=== PATIENT | female | born 1980 | race Two or more races ===

== ENCOUNTER 2025-04-16 08:56 | Inpatient (IN) | payer OTHER ==
[~2025-04-16] VITALS: Ht 162.6 cm; Wt 95.2 kg
[~2025-04-16 08:56] MED LIST: AUG875T PO; IBUP1TAB5 PO
--- NOTE | 2025-04-16 09:54 | ED.PDOC ---
Musculoskeletal HPI Comments 44 y.o female recently dx with rheumatoid arthritis, DJD, and kidney stones, presents to the ED via EMS for a chief complaint of left knee x 2 weeks and left hip x 2 days. Patient reports pain is new onset, denies any recent falls or injuries to pain site. Patient states generalized pain due to her arthritis is intermittent however left knee and hip have been persistent and gradually worsening with inability to bear weight. Patient has limited ROM with worsening pain with movement and states that her left/knee locks spontaneously. She is awaiting to obtain appointment to see a furnace erector to establish care. She denies any numbness, fever, chills, or IV substance use. She uses Ibuprofen QID and up to 5x with marijuana with pain relief to chronic pain however knee and hip has no alleviating factors. Chief Complaint: Lower Extremity Time Seen by MD: 11:36 Primary Care Provider: NONE Reviewed Notes: Nurses Notes, Chief Passenger Ship Steward/Stewardess Notes, Medications, Allergies Allergies: Coded Allergies: Iodine (Verified Allergy, Severe, 08/03/23) Home Meds Active Scripts Ibuprofen Micronized (Ibuprofen) 600 Mg Tab, 600 MG PO TIDWM for 10 Days, #30 TAB 0 Refills Prov:MEDINA BUI NP 08/03/23 Amoxicillin & Pot Clavulanate (AUGMENTIN TABLET) 875 Mg Tb, 875 MG PO BID for 7 Days, #14 TAB 0 Refills Prov:MEDINA BUI MEDIA SALES REPRESENTATIVE 08/03/23 Information Source: Patient Location: Left Extremity Location: Hip Severity: Moderate Able to Move Extremity: No Bear Weight: Limited Pain: Moderate Symptoms: Pain Past Medical History PAST MEDICAL HISTORY: Denies Surgical History: Denies all surgeries OVERLAY OPERATOR History: No Pertinent OVERLAY OPERATOR History Family History Family History: Reviewed,noncontributory to illness Social History Smoker: Non-Smoker Alcohol: Denies ETOH Use Drugs: Denies Drug Use Constitutional: denies: chills, diaphoresis, fatigue, fever, malaise, sweats, w eakness, others EENTM: denies: blurred vision, double vision, ear bleeding, ear discharge, ear drainage, ear pain, ear ringing, eye pain, eye redness, hearing loss, mouth pain, mouth swelling, nasal discharge, nose bleeding, nose congestion, nose pain, photophobia, tearing, throat pain, throat swelling, voice changes, others Respiratory: denies: cough, hemoptysis, orthopnea, SOB at rest, shortness of breath, SOB with excertion, stridor, wheezing, others Cardiovascular: denies: chest pain, dizzy spells, diaphoresis, Dyspnea on exertion, edema, irregular heart beat, left arm pain, lightheadedness, palpitations, PND, syncope, others Gastrointestinal: denies: abdomen distended, abdominal pain, blood streaked bowels, constipated, diarrhea, dysphagia, difficulty swallowing, hematemesis, melena, nausea, poor appetite, poor fluid intake, rectal bleeding, rectal pain, vomiting, others Genitourinary: denies: abnormal vagina bleeding, burning, dyspareunia, dysuria, flank pain, frequency, hematuria, incontinence, pain, , vagina di scharge, urgency, others Neurological: denies: dizziness, fainting, headache, left sided numbness, left sided weakness, numbness, paresthesia, pre-existing deficit, right sided numbness, right sided weakness, seizure, speech problems, tingling, tremors, weakness, others Musculoskeletal: reports: others (left hip pain ); denies: back pain, gout, joint pain, joint swelling, muscle pain, muscle stiffness, neck pain Integumetry: denies: bruises, change in color, change in hair/nails, dryness, laceration, lesions, lumps, rash, wounds, others Allergic/Immunocompromised: denies: Difficulty Healing, Frequent Infections, Hives, Itching, others Hematologic/Lymphatic: denies: anemia, blood clots, easy bleeding, easy bruising, swollen glands, others Endocrine: denies: excessive hunger, excessive sweating, excessive thirst, excessive urination, flushing, intolerance to cold, intolerance to heat, unexplained weight gain, unexplained weight loss, others Psychiatric: denies: anxiety, bipolar disorder, depression, hopeless, panic disorder, schizophrenia, sleepless, suicidal, others All Other Systems: Reviewed and Negative Physical Exam General Appearance: Moderate Distress HEENT: Normal ENT Inspection, Pharynx Normal, TMs Normal Neck: Full Range of Motion, Non-Tender, Normal, Normal Inspection Respiratory: Chest Non-Tender, Lungs Clear, No Accessory Muscle Use, No Respiratory Distress, Normal Breath Sounds Cardiovascular: No Edema, No JVD, No Murmur, No Gallop, Normal Peripheral Pulses, Regular Rate/Rhythm Breast Exam: Deferred Gastrointestinal: No Organomegaly, Non Tender, No Pulsatile Mass, Normal Bowel Sounds, Soft Genitalia: Deferred Pelvic: Deferred Rectal: Deferred Extremities: Other (Swelling to the left knee. No pain with passive movement. However increased pain with ambulation. Left hip with no obvious swelling or deformity. Patient is able to bear weight hip without difficulty.) Musculoskeletal : Apperance: Normal Neurologic: Alert, No Motor Deficits, Normal Affect, Normal Mood, No Sensory Deficits Cerebellar Function: Normal Reflexes: Normal Skin: Dry, Normal Color, Warm Lymphatic: No Adenopathy Was a procedure done? Was a procedure done?: No Differential Diagnosis EXT Differential Diagnosis: Fracture, Sprain, Dislocation, Strain, Arthritis X-Ray, Labs, Meds, VS Vital Signs Date Time Temp Pulse Resp B/P (MAP) Pulse Ox O2 Delivery O2 Flow Rate FiO2 04/16/25 15:40 81 14 127/80 (96) 95 04/16/25 14:44 81 14 127/80 (96) 95 04/16/25 14:42 81 14 127/80 04/16/25 13:53 76 19 137/82 04/16/25 13:37 97.9 76 19 137/82 (100) 97 97.9 04/16/25 13:37 76 19 97 Room Air* 0 21 04/16/25 13:36 76 19 137/82 04/16/25 12:35 98.6 76 18 136/92 (107) 100 98.6 04/16/25 10:46 81 20 123/91 04/16/25 10:40 80 18 100 Room Air 04/16/25 10:40 98.4 80 18 121/94 (103) 100 98.4 Lab Test 04/16/25 12:43 Range/Units White Blood Count 9.9 4.4-10.8 10^3/uL Red Blood Count 4.83 4.0-5.20 10^6/uL Hemoglobin 11.9 L 12.2-16.2 g/dL Hematocrit 37.0 36.0-46.0 % Mean Corpuscular Volume 76.6 L 80.0-100.0 fL Mean Corpuscular Hemoglobin 24.7 L 28.0-32.0 pg Mean Corpuscular Hemoglobin Concent 32.2 32.0-36.0 g/dL Red Cell Distribution Width 18.6 H 11.8-14.3 % Platelet Count 370 140-450 10^3/uL Mean Platelet Volume 8.3 6.9-10.8 fL Neutrophils (%) (Auto) 71.5 37.0-80.0 % Lymphocytes (%) (Auto) 18.2 10.0-50.0 % Monocytes (%) (Auto) 5.9 0.0-12.0 % Eosinophils (%) (Auto) 3.4 0.0-7.0 % Basophils (%) (Auto) 1.0 0.0-2.0 % Neutrophils # (Auto) 7.1 1.6-8.6 10 ^3/uL Lymphocytes # (Auto) 1.8 0.4-5.4 10 ^3/uL Monocytes # (Auto) 0.6 0-1.3 10 ^3/uL Eosinophils # (Auto) 0.3 0-0.8 10 ^3/uL Basophils # (Auto) 0.1 0-0.2 10 ^3/uL Nucleated Red Blood Cells 0.1 % Erythrocyte Sedimentation Rate 9 0-20 mm/hr Sodium Level 142 136-145 mmol/L Potassium Level 4.5 3.5-5.1 mmol/L Chloride Level 109 H 98-107 mmol/L Carbon Dioxide Level 24 20-31 mmol/L Anion Gap 9 5-15 Blood Urea Nitrogen 22 9-23 mg/dL Creatinine 0.92 0.550-1.02 mg/dL Glomerular Filtration Rate Calc 78 >90 mL/min BUN/Creatinine Ratio 23.9 H 10.0-20.0 Serum Glucose 92 74-106 mg/dL Calcium Level 9.5 8.7-10.4 mg/dL C-Reactive Protein High Sensitivity 0.37 <1.0 mg/dL Current Medications Medications (Trade) Dose Ordered Sig/Charles Route Start Time Stop Time Status Last Admin Hydromorphone HCl (Dilaudid Injection) 0.5 mg ONCE ONCE IV 04/16/25 10:00 04/16/25 10:01 OK 04/16/25 10:46 Ondansetron HCl (Zofran) 4 mg ONCE ONCE IV 04/16/25 10:00 04/16/25 10:01 OK 04/16/25 10:47 Hydromorphone HCl (Dilaudid Injection) 0.5 mg ONCE ONCE IV 04/16/25 12:15 04/16/25 12:16 DC 04/16/25 13:53 Dexamethasone Sodium Phosphate (Decadron Injection) 10 mg ONCE ONCE IV 04/16/25 14:30 04/16/25 14:31 DC 04/16/25 14:42 44-year-old female presents here with left hip pain that began this morning and left knee pain that she has had for 2 weeks. She states the left knee has been swollen and causing her discomfort for 2 weeks. She does have x-rays ordered by her PCP and she is waiting to see the furnace erector. She was recently diagnosed with rheumatoid arthritis. She states however she woke up this morning and the pain was excruciating. On my examination she is in significant discomfort. I have given her multiple injections of pain medications. She is able to bear weight on her hip, it is her knee that causes her most problems. However she does not have pain with passive movement of the left knee. I did considered possible septic joint. However given that she has 2 large joints that are causing her pain both the hip and left knee this is unlikely. This is likely a flare-up of her rheumatoid arthritis. Blood work has been done with no WBC count, ESR is within normal limits, CRP is slightly elevated however this can be also being seen in rheumatoid arthritis. At this time I have given her dexamethasone in the ER. X-rays has been done of the hip femur including the knee which are unremarkable. At this time hospitalist team has been consulted for pain control patient has been significant pain. X-Ray, Labs, Meds, VS Comment [place] [address] Ph: [phone] DIAGNOSTIC IMAGING Diagnostic Imaging Report : [id number] Signed PATIENT: CELESTINE LAZO LYNNACCT: [id number] UNIT: [id number] : 1980 LOC: ER ROOM / BED: / AGE / SEX: 44 / F ADM STATUS: REG ER SERVICE [id number] ORDERING PHYSICIAN: KEVIN CHICAS MD PROCEDURE(s): LFEM - L FEMUR XRAY REASON: Rule out fracture ORDER NUMBER(s): [id number], ACCESSION NUMBER(s): [id number] EXAM: XY L FEMUR XRAY HISTORY: Rule out fracture COMPARISON: None TECHNIQUE: AP and lateral views of the left femur were performed. FINDINGS: No evidence of fracture or other osseous abnormality about the left femur. The left hip and knee are grossly normal. IMPRESSION: 1. No acute fracture of the left femur. ATED BY: SUMEET MANRIQUEZ MD DICTATED DATE/TIME: 04/16/251031 SIGNED BY: SUMEET MANRIQUEZ MD SIGNED DATE/TIME: 04/16/251031 CC: [place] [address] Ph: [phone] DIAGNOSTIC IMAGING Diagnostic Imaging Report : [id number] Signed PATIENT: CELESTINE LAZO LYNNACCT: [id number] UNIT: [id number] : 1980 LOC: ER ROOM / BED: / AGE / SEX: 44 / F ADM STATUS: REG ER SERVICE [id number] ORDERING PHYSICIAN: KEVIN CHICAS MD PROCEDURE(s): LFEM - L FEMUR XRAY REASON: Rule out fracture ORDER NUMBER(s): [id number], ACCESSION NUMBER(s): [id number] EXAM: XY L FEMUR XRAY HISTORY: Rule out fracture COMPARISON: None TECHNIQUE: AP and lateral views of the left femur were performed. FINDINGS: No evidence of fracture or other osseous abnormality about the left femur. The left hip and knee are grossly normal. IMPRESSION: 1. No acute fracture of the left femur. ATED BY: SUMEET MANRIQUEZ MD DICTATED DATE/TIME: 04/16/251031 SIGNED BY: SUMEET MANRIQUEZ MD SIGNED DATE/TIME: 04/16/251031 CC: Time of 1ST Reevaluation: 12:00 Reevaluation 1ST: Unchanged Patient Education/Counseling: Diagnosis, Treatment, Prognosis Family Education/Counseling: No Family Present Departure 1 Departure Time of Disposition: 16:00 Impression: Primary Impression: Rheumatoid arthritis flare Disposition: ADMITTED INPATIENT Condition: Fair Critical Care Note Critical Care Time?: No Stability Stability form required: No I personally scribed for KEVIN CHICAS MD ([email or web address]) on 04/16/25 at 09:54. Electronically submitted by Brittany Merlos ([facility]). I personally scribed for KEVIN [facility]ICAS MD ([email or web address] on 04/16/25 at 10:44. Electronically submitted by Brittany Merlos ([facility]). I personally scribed for KEVIN CHICAS MD ([email or web address]) on 04/16/25 at 12:00. Electronically submitted by Brittany Merlos ([facility]). KEVIN CHICAS MD Apr 16, 2025 09:54
--- NOTE | 2025-04-16 10:34 | DVH ---
EXAM: XY L FEMUR XRAY HISTORY: Rule out fracture COMPARISON: None TECHNIQUE: AP and lateral views of the left femur were performed. FINDINGS: No evidence of fracture or other osseous abnormality about the left femur. The left hip and knee are grossly normal. IMPRESSION: 1. No acute fracture of the left femur.
--- NOTE | 2025-04-16 10:36 | DVH ---
XY PELVIS AP 04/16/25 HISTORY: Rule out dislocation fracture TECHNICAL DATA: Frontal view was obtained of the pelvis. COMPARISON: None FINDINGS: There is no abnormality involving the bony pelvis. The sacroiliac joints appear normal. There is no abnormality of the symphysis pubis. The hip joint spaces are symmetric. The proximal femurs demonstrate no abnormality. Postoperative changes from lumbosacral spinal fusion. IMPRESSION: 1. No acute fracture or dislocation of the pelvis.
[2025-04-16] MEDS: HYDROmorphone HCL 2 MG/ML VL/or syr IV ONE ×2 (10:46→13:53)
[2025-04-16] MEDS: ONDANSETRON HCL 4 MG/2 ML VIAL IV ONE (10:47)
[2025-04-16 13:07] LABS: Hematocrit 37.0 % (36.0-46.0); Hemoglobin 11.9 g/dL (12.2-16.2); Mean Corpuscular Hemoglobin 24.7 pg (28.0-32.0); Mean Corpuscular Volume 76.6 fL (80.0-100.0); Nucleated Red Blood Cells % 0.1 %
[2025-04-16 13:13] LABS: Anion Gap 9 (5-15); Carbon Dioxide 24 mmol/L (20-31); Potassium 4.5 mmol/L (3.5-5.1); Sodium 142 mmol/L (136-145)
[2025-04-16 13:14] LABS: Calcium 9.5 mg/dL (8.7-10.4)
[2025-04-16 13:19] LABS: BUN/Creatinine Ratio 23.9 (10.0-20.0); Blood Urea Nitrogen 22 mg/dL (9-23); Glucose 92 mg/dL (74-106)
[2025-04-16 13:37] VITALS: PULSE 76; RESP 19; O2SAT 97
[2025-04-16 13:53] LABS: Chloride 109 mmol/L (98-107)
[2025-04-16] MEDS ORDERED: MORPHINE SULFATE INJ 2 MG/ml SYRG IV PRN (15:30)
[2025-04-16] MEDS ORDERED: ACETAMINOPHEN 325 MG TAB PO PRN (15:30)
[2025-04-16] MEDS ORDERED: DOCUSATE SOD 100 MG CAP PO PRN (15:30)
[2025-04-16] MEDS ORDERED: NITROGLYCERIN 0.4 MG SL TAB SL PRN (15:30)
[2025-04-16] MEDS: ONDANSETRON HCL 4 MG/2 ML VIAL IV PRN (16:02)
[2025-04-16] MEDS: MORPHINE SULFATE INJ 2 MG/ml SYRG IV PRN (16:03)
--- NOTE | 2025-04-16 16:21 | DVHHPRES ---
History of Present Illness Resident Creating Document: OTF WALL RESIDENT History of Present Illness Rob Sarai Reyes, a 44 year old female with recently diagnosed rheumatoid arthritis, DJD, HTN and history of kidney stones presents to the ED via EMS for new-onset atraumatic left knee pain for 2 weeks and left hip pain for 2 days. She denies any recent falls or injury. While her baseline arthritis pain is intermittent, the left knee and hip pain have been persistent and gradually worsening, now with difficulty bearing weight and limited range of motion due to increased pain with movement; she also reports the left knee locks spontaneously. She is awaiting an appointment to establish care with rheumatology. She denies numbness, fever, chills, or IV drug use. She has tried ibuprofen QID and marijuana (which helps her chronic pain) but reports no alleviating factors for the current knee/hip pain. PMHx: recently diagnosed rheumatoid arthritis, DJD, HTN and history of kidney stones PSHx: None Family history: Noncontributory Social history: Occasional Marijuana, otherwise non-alcoholic, no other recre ational drugs. Lives at home with family. Medications: Ibuprofen, Losartan. NO DMARDS Review of Systems Constitutional: Yes: Malaise; No: Fever, Chills, Sweats, Weakness, Other Eyes: No: Pain, Vision change, Conjunctivae inflammation, Eyelid inflammation, Other, Redness ENT: No: Ear pain, Ear discharge, Nose pain, Nose discharge, Nose congestion, Mouth pain, Mouth swelling, Throat pain, Throat swelling, Other Respiratory: No: Cough, Dry, Shortness of breath, SOB with excertion, Wheezing, Hemoptysis, Pleuritic Pain, Sputum, Wheezing, Other Cardiovascular: No: Chest Pain, Palpitations, Orthopnea, Paroxysmal Noc. Dyspnea, Edema, Lt Headedness, Other Gastrointestinal: No: Nausea, Vomiting, Abdominal Pain, Diarrhea, Constipation, Melena, Hematochezia, Other Genitourinary: No Dysuria, No Frequency, No Incontinence, No Hematuria, No Retention, No Other Musculoskeletal: other (left hip and left knee pain and tenderness. ), leg pain ; No: neck pain, shoulder pain, arm pain, back pain, hand pain, foot pain Skin: No: Rash, Lesions, Jaundice, Bruising, Other Neurological: No: Weakness, Numbness, Incoordination, Change in speech, Confusion, Seizures, Other Allergies: Coded Allergies: Iodine (Verified Allergy, Severe, 08/03/23) Medications Current Medications Medications Dose Ordered Sig/Charles Route Start Time Stop Time Status Last Admin Dose Admin Acetaminophen/ Hydrocodone Bitart 1 tab Q4HP PRN PO 04/16/25 15:30 Ondansetron HCl 4 mg Q4HP PRN IV 04/16/25 15:30 04/16/25 16:02 4 MG Docusate Sodium 100 mg BIDPRN PRN PO 04/16/25 15:30 Acetaminophen 650 mg Q6HP PRN PO 04/16/25 15:30 Morphine Sulfate 2 mg Q4HPRN PRN IV 04/16/25 15:30 04/16/25 16:03 2 MG Nitroglycerin 0.4 mg Q5MINP PRN SL 04/16/25 15:30 Morphine Sulfate 2 mg Q30M PRN IV 04/16/25 15:30 Exam Vital Signs Vital Signs Date Time Temp Pulse Resp B/P (MAP) Pulse Ox O2 Delivery O2 Flow Rate FiO2 04/16/25 16:03 67 19 132/81 (98) 98 04/16/25 13:37 97.9 97.9 04/16/25 13:37 Room Air* 0 21 General Appearance: Alert, Oriented X3, Cooperative, moderate distress HEENT: Atraumatic, PERRLA, EOMI, Other (pallor conjunctival) Respiratory: Clear to auscultation, Normal air movement Cardiovascular: Regular rate, Normal S1, Normal S2, No murmurs Abdominal: Normal bowel sounds, Soft, No tenderness, No hepatospenomegaly, No masses Extremities: No clubbing, No cyanosis, No edema, Other (left hip excruciating tenderness, on passive and active movement pain 10/10, similar pain and tenderness on the left knee. no redness noted but mild swelling around the joint noted. ) Skin: No rashes, No breakdown, No significant lesion Neuro: Normal speech, Strength at 5/5 X4 ext, Normal tone, Sensation intact, Cranial nerves 3-12 NL, Other (cannot test gait due to pain, patient refused standing. ) Psych/Mental Status: Mental status NL, Mood NL Labs/Xrays Labs Test 04/16/25 12:43 Range/Units White Blood Count 9.9 4.4-10.8 10^3/uL Red Blood Count 4.83 4.0-5.20 10^6/uL Hemoglobin 11.9 L 12.2-16.2 g/dL Hematocrit 37.0 36.0-46.0 % Mean Corpuscular Volume 76.6 L 80.0-100.0 fL Mean Corpuscular Hemoglobin 24.7 L 28.0-32.0 pg Mean Corpuscular Hemoglobin Concent 32.2 32.0-36.0 g/dL Red Cell Distribution Width 18.6 H 11.8-14.3 % Platelet Count 370 140-450 10^3/uL Mean Platelet Volume 8.3 6.9-10.8 fL Neutrophils (%) (Auto) 71.5 37.0-80.0 % Lymphocytes (%) (Auto) 18.2 10.0-50.0 % Monocytes (%) (Auto) 5.9 0.0-12.0 % Eosinophils (%) (Auto) 3.4 0.0-7.0 % Basophils (%) (Auto) 1.0 0.0-2.0 % Neutrophils # (Auto) 7.1 1.6-8.6 10 ^3/uL Lymphocytes # (Auto) 1.8 0.4-5.4 10 ^3/uL Monocytes # (Auto) 0.6 0-1.3 10 ^3/uL Eosinophils # (Auto) 0.3 0-0.8 10 ^3/uL Basophils # (Auto) 0.1 0-0.2 10 ^3/uL Nucleated Red Blood Cells 0.1 % Erythrocyte Sedimentation Rate 9 0-20 mm/hr Sodium Level 142 136-145 mmol/L Potassium Level 4.5 3.5-5.1 mmol/L Chloride Level 109 H 98-107 mmol/L Carbon Dioxide Level 24 20-31 mmol/L Anion Gap 9 5-15 Blood Urea Nitrogen 22 9-23 mg/dL Creatinine 0.92 0.550-1.02 mg/dL Glomerular Filtration Rate Calc 78 >90 mL/min BUN/Creatinine Ratio 23.9 H 10.0-20.0 Serum Glucose 92 74-106 mg/dL Calcium Level 9.5 8.7-10.4 mg/dL C-Reactive Protein High Sensitivity 0.37 <1.0 mg/dL SEPSIS Sepsis Screen Date sepsis recognized/suspect: Apr 16, 2025 Time Sepsis recognized/suspect: 7 Recent Procedure: No On Antibiotic Therapy: No Respiratory Rate >20: No Heart Rate >90: No Temp<36 C (96.8 F) or >38.3 C: No SBP <90 or MAP <65 mmHG: No New Acute Mental Status Change: No Is the patient on CPAP, BIPAP,: No Physician Orders L Femur Xray (04/16/25 09:44) Pelvis Ap (04/16/25 09:44) Admit (04/16/25 15:17) Allergies (04/16/25 15:17) Code Status (04/16/25 15:17) Hydrocodone-Acet 5/325mg Tab ([place] 5/32 (04/16/25 15:30) Ondansetron Hcl (Zofran) (04/16/25 15:30) Docusate Sodium Capsule (Colace Capsule) (04/16/25 15:30) Fall Risk Precautions In Place QSHIFT (04/16/25 15:17) Complete Blood Count (04/17/25 04:00) Comprehensive Metabolic Panel (04/17/25 04:00) Npo (Nothing By Mouth) Diet (04/16/25 Dinner) Pt Request For Service (04/16/25 15:17) Condition: Critical (04/16/25 15:17) Acetaminophen Tablet (Tylenol Tablet) (04/16/25 15:30) Bedrest With Bathroom Privileg (04/16/25 15:17) Morphine Sulfate Injection (04/16/25 15:30) Sequential Compression Device (04/16/25 ) Nitroglycerin Sublingual (Ntrostat Subli (04/16/25 15:30) Morphine Sulfate Injection (04/16/25 15:30) Oxygen By Nasal Cannula (04/16/25 15:17) Stat Ekg For Chest Pain (04/16/25 15:17) Notify Md Of Changes From Base (04/16/25 15:17) Cutting Department Supervisor For 24 Hours (04/16/25 15:17) Emergency Dysrhythmia Protocol (04/16/25 15:17) Rhythm Strips Once Every Shift (04/16/25 15:17) Vital Signs Date Time Temp Pulse Resp B/P (MAP) Pulse Ox O2 Delivery O2 Flow Rate FiO2 04/16/25 16:03 67 19 132/81 (98) 98 04/16/25 16:03 67 19 132/81 04/16/25 15:40 81 14 127/80 (96) 95 04/16/25 14:44 81 14 127/80 (96) 95 04/16/25 14:42 81 14 127/80 04/16/25 13:53 76 19 137/82 04/16/25 13:37 97.9 76 19 137/82 (100) 97 97.9 04/16/25 13:37 76 19 97 Room Air* 0 21 04/16/25 13:36 76 19 137/82 04/16/25 12:35 98.6 76 18 136/92 (107) 100 98.6 04/16/25 10:46 81 20 123/91 04/16/25 10:40 80 18 100 Room Air 04/16/25 10:40 98.4 80 18 121/94 (103) 100 98.4 Laboratory Tests Test 04/16/25 12:43 White Blood Count 9.9 10^3/uL (4.4-10.8) Medications Medications Dose Ordered Sig/Charles Route Start Time Stop Time Status Last Admin Dose Admin Dexamethasone Sodium Phosphate 10 mg ONCE ONCE IV 04/16/25 14:30 04/16/25 14:31 DC 04/16/25 14:42 10 MG Hydromorphone HCl 0.5 mg ONCE ONCE IV 04/16/25 10:00 04/16/25 10:01 DC 04/16/25 10:46 0.5 MG Hydromorphone HCl 0.5 mg ONCE ONCE IV 04/16/25 12:15 04/16/25 12:16 DC 04/16/25 13:53 0.5 MG Morphine Sulfate 2 mg Q4HPRN PRN IV 04/16/25 15:30 04/16/25 16:03 2 MG Ondansetron HCl 4 mg ONCE ONCE IV 04/16/25 10:00 04/16/25 10:01 DC 04/16/25 10:47 4 MG Ondansetron HCl 4 mg Q4HP PRN IV 04/16/25 15:30 04/16/25 16:02 4 MG Assessment/Plan Assessment/Plan #Acute L hip and L knee pain: deferentials include Avascular necrosis of the femur head, acute Rheumatoid arthritis exacerbation, fracture, bone mass, neuropathy and osteopenia, xray, L femur head MRI, NSAID and multimodal pain management. PT early evaluation with Rheumatology outpatient, Started DMARDS, Rheumatology panel ordered, please rule out septic arthritis if fever, wbc and other signs points later. Will rule out STDs as a cause of joint infectious arthropathy. #Grade II obesity: Patient is counseled regarding the weight loss and lifestyle modification. #Essential HTN: losartan 50 mg daily at home, if blood pressure increases restart. target 140/90 or below, rule out DM. #Newly Diagnosed Rheumatoid Arthritis: Unclear history, RA panel ESR, CRP unremarkable, ERROL panel to check, patient is not on Rheumatology care, not on DMARDs, started initial treatment and workup, needs close follow up with PCP and earliest referral to the specialist to limit irreversible damage and check DEXA scan for early onset osteopenia. PUD prophylaxis: protonix 40mg daily DVT prophylaxis: Lovenox 40mg Barriers to discharge: Medical diagnosis and management in progress. Independent for ADL. PT evaluation pending. PCP: Jen Tabor. Specialist Relevant To Admission: Rheumatology, outpatient follow up needed. NOT consulted in hospital. Case discussed with Dr. Darling. Code Status: Full Code. Discussion needed total 27 minutes bedside. Patient agreeable to admission and care at Med-Surg floor. Plan discussed with: Patient My Orders Orders - OTF WALL RESIDENT Procedure Category Date Status Time Admit ADMIT 04/16/25 Transmitted 15:17 Allergies FRIEDA 04/16/25 In Process 15:17 Code Status CODE 04/16/25 Transmitted 15:17 Hydrocodone-Acet PHA 04/16/25 In Process 5/325mg Tab ([place] 15:30 Ondansetron Hcl PHA 04/16/25 In Process (Zofran) 15:30 Docusate Sodium PHA 04/16/25 In Process Capsule (Colace 15:30 Fall Risk Precautions FRIEDA 04/16/[address] 15:17 Complete Blood Count LAB 04/17/25 Verified 04:00 Comprehensive LAB 04/17/25 Verified Metabolic Panel 04:00 Npo (Nothing By DIET 04/16/25 Transmitted Mouth) Diet Dinner Pt Request For Service PT 04/16/25 Logged 15:17 Condition: Critical FRIEDA 04/16/25 In Process 15:17 Acetaminophen Tablet [facility] 04/16/25 In Process (Tylenol Tablet) 15:30 Bedrest With Bathroom [facility] 04/16/25 In Process Privileg 15:17 Morphine Sulfate [facility] 04/16/25 In Process Injection 15:30 Sequential [facility] 04/16/25 In Process Compression Device Nitroglycerin [facility] 04/16/25 In Process Sublingual (Ntrostat 15:30 Morphine Sulfate [facility] 04/16/25 In Process Injection 15:30 Oxygen By Nasal 04/16/25 Transmitted Cannula 15:17 Stat Ekg For Chest [facility] 04/16/25 In Process Pain 15:17 Notify Md Of Changes [facility] 04/16/25 In Process From Base 15:17 Cutting Department Supervisor For [facility] 04/16/25 In Process 24 Hours 15:17 Emergency Dysrhythmia [facility] 04/16/25 In Process Protocol 15:17 Rhythm Strips Once [facility] 04/16/25 In Process Every Shift 15:17 Date of Service: Apr 16, 2025 Billing Provider: SEBASTIÁN DARLING MD Common Visit Codes: [id number] INP/OBS CARE (HIGH) Secondary Visit Codes: [id number] CARE PLAN 30 MINUTES OTF WALL Apr 16, 2025 16:21
[2025-04-16 19:29] VITALS: PULSE 69; RESP 14; O2SAT 96
[2025-04-16 19:36] LABS: Total Iron Binding Capacity 378.0 ug/dL (250-425)
[2025-04-16 19:42] LABS: Iron 21.0 ug/dL (50-170)
[2025-04-16] MEDS: PANTOPRAZOLE 40 MG/10 ML VIAL INJ IV ONE (20:35)
[2025-04-16] MEDS: HYDROmorphone HCL 2 MG/ML VL/or syr IV PRN (20:37)
[2025-04-16 23:15] VITALS: PULSE 65; RESP 19; O2SAT 97
[2025-04-16] MEDS ORDERED: LOSA-534 PO (23:16)
[2025-04-17 01:00] VITALS: BP 130/80; PULSE 65; RESP 19; TEMP 97.2; O2SAT 97
[2025-04-17 05:22] VITALS: BP 127/81; PULSE 80; RESP 18; O2SAT 98
[2025-04-17] MEDS ORDERED: METHOTREXATE 2.5 MG TAB PO SCH (06:15)
[2025-04-17] MEDS: FOLIC ACID 1 MG TAB PO ONE (06:42)
[2025-04-17 07:06] LABS: Hematocrit 36.6 % (36.0-46.0); Hemoglobin 11.5 g/dL (12.2-16.2); Mean Corpuscular Hemoglobin 24.7 pg (28.0-32.0); Mean Corpuscular Volume 78.4 fL (80.0-100.0); Nucleated Red Blood Cells % 0.1 %
[2025-04-17 07:27] LABS: Alanine Aminotransferase 16 U/L (7-40); Alkaline Phosphatase 95 U/L (46-116); Anion Gap 9 (5-15); Calcium 8.9 mg/dL (8.7-10.4); Carbon Dioxide 23 mmol/L (20-31); Potassium 4.2 mmol/L (3.5-5.1); Sodium 142 mmol/L (136-145)
[2025-04-17 07:28] LABS: Glucose 85 mg/dL (74-106)
[2025-04-17 07:29] LABS: BUN/Creatinine Ratio 15.4 (10.0-20.0); Blood Urea Nitrogen 12 mg/dL (9-23); Total Protein 6.3 g/dL (5.7-8.2)
[2025-04-17 07:30] LABS: Albumin 3.8 g/dL (3.2-4.8)
[2025-04-17 07:31] LABS: Bilirubin, Total 0.5 mg/dL (0.2-1.0); Chloride 110 mmol/L (98-107)
[2025-04-17 09:00] VITALS: BP 126/83; PULSE 84; RESP 17; TEMP 98; O2SAT 98
[2025-04-17] MEDS: predniSONE 20 MG TAB PO SCH (09:35)
[2025-04-17] MEDS: PANTOPRAZOLE 40 MG/10 ML VIAL INJ IV SCH (09:35)
--- NOTE | 2025-04-17 09:35 | DVH ---
EXAM: MRI MRI L FEMUR WO CONTRAST CLINICAL INDICATION: r/o femur head necrosis COMPARISON: XY L FEMUR XRAY on DOS: 04/16/25 TECHNIQUE: Multiplanar, multisequence MRI of the left femur was performed without intravenous contrast. Contrast: None INTERPRETATION: Bones: There is bone marrow edema in the medial femoral condyle which corresponds to an area of hypointensity on the T1 weighted images. No definite fracture plane is identified. Note is made that there is significant articular cartilage loss over the medial femoral condyle. Evaluation of the other st ructures in the knee are limited due to large [id number] imaging. There are no MR findings to suggest avascular necrosis. Joints: Hip joint space is maintained. Narrowing of the medial compartment of the knee joint. No abnormal alignment. Knee joint effusion. Soft tissues: There is no muscle atrophy. There is no soft tissue mass or fluid collection. There is a knee joint effusion. There is anterior soft tissue swelling in the knee. IMPRESSION: 1. Bone marrow edema in the medial femoral condyle. This may be related to reactive marrow edema in the setting of significant articular cartilage loss and medial compartment joint space narrowing. A subchondral insufficiency fracture can also have this appearance although no definite fracture plane is identified on this examination but detection is somewhat limited by the large field of the view. No evidence of avascular necrosis. 2. The menisci and ligaments are not evaluated on this examination. MRI of the knee is recommended for further evaluation if clinically warranted. 3. Mild anterior soft tissue swelling in the knee.
[2025-04-17] MEDS: IRON SUCROSE COMPLEX 110 ML IV SCH (12:00)
[2025-04-17] MEDS: HYDROcodone-ACET 5/325MG TAB PO PRN (12:07)
[2025-04-17 13:00] VITALS: BP 126/87; PULSE 74; RESP 18; TEMP 98.6; O2SAT 98
[2025-04-17] MEDS: METHOTREXATE 2.5 MG TAB PO SCH (13:14)
[2025-04-17] MEDS ORDERED: METH4PAK PO (16:49)
[2025-04-17] MEDS ORDERED: HYDR-4798 PO (16:49)
[2025-04-17] MEDS ORDERED: METH2.5T62 PO (16:49)
[2025-04-17] MEDS ORDERED: NALO4SPR2 (16:49)
[2025-04-17] MEDS ORDERED: DOCU-265 PO (16:49)
--- NOTE | 2025-04-17 16:55 | DVHDS2 ---
Discharge Summary Date of Admission Apr 16, 2025 at 15:17 Date of Discharge: Apr 17, 2025 Labs/Diagnostic Data: Laboratory Results Test 04/17/25 05:52 04/16/25 19:10 04/16/25 12:43 White Blood Count 13.0 10^3/uL (4.4-10.8) Red Blood Count 4.67 10^6/uL (4.0-5.20) Hemoglobin 11.5 g/dL (12.2-16.2) Hematocrit 36.6 % (36.0-46.0) Mean Corpuscular Volume 78.4 fL (80.0-100.0) Mean Corpuscular Hemoglobin 24.7 pg (28.0-32.0) Mean Corpuscular Hemoglobin Concent 31.5 g/dL (32.0-36.0) Red Cell Distribution Width 17.8 % (11.8-14.3) Platelet Count 320 10^3/uL (140-450) Mean Platelet Volume 8.6 fL (6.9-10.8) Neutrophils (%) (Auto) 85.5 % (37.0-80.0) Lymphocytes (%) (Auto) 9.9 % (10.0-50.0) Monocytes (%) (Auto) 4.4 % (0.0-12.0) Eosinophils (%) (Auto) 0.0 % (0.0-7.0) Basophils (%) (Auto) 0.2 % (0.0-2.0) Neutrophils # (Auto) 11.1 10 ^3/uL (1.6-8.6) Lymphocytes # (Auto) 1.3 10 ^3/uL (0.4-5.4) Monocytes # (Auto) 0.6 10 ^3/uL (0-1.3) Eosinophils # (Auto) 0 10 ^3/uL (0-0.8) Basophils # (Auto) 0 10 ^3/uL (0-0.2) Nucleated Red Blood Cells 0.1 % Sodium Level 142 mmol/L (136-145) Potassium Level 4.2 mmol/L (3.5-5.1) Chloride Level 110 mmol/L (98-107) Carbon Dioxide Level 23 mmol/L (20-31) Anion Gap 9 (5-15) Blood Urea Nitrogen 12 mg/dL (9-23) Creatinine 0.78 mg/dL (0.550-1.02) Glomerular Filtration Rate Calc 95 mL/min (>90) BUN/Creatinine Ratio 15.4 (10.0-20.0) Serum Glucose 85 mg/dL (74-106) Hemoglobin A1c 5.5 % A1C (<5.7) Calcium Level 8.9 mg/dL (8.7-10.4) Total Bilirubin 0.5 mg/dL (0.2-1.0) Aspartate Amino Transferase (AST) 16 U/L (13-40) Alanine Aminotransferase (ALT) 16 U/L (7-40) Alkaline Phosphatase 95 U/L (46-116) Total Protein 6.3 g/dL (5.7-8.2) Albumin 3.8 g/dL (3.2-4.8) Vitamin B12 Level 437 pg/mL (211-911) Vitamin D 25-Hydroxy 34.1 ng/mL (30.0-100) Folic Acid 14.37 ng/mL (>5.38) Thyroid Stimulating Hormone (TSH) 0.25 uIU/mL (0.55-4.78) Free Thyroxine (T4) Calculated 1.02 ng/dL (0.89-1.76) Beta HCG, Quantitative 0.9 mIU/mL (1.5-4.2) Lactic Acid Level 0.5 mmol/L (0.4-2.0) Erythrocyte Sedimentation Rate 9 mm/hr (0-20) Uric Acid 3.5 mg/dL (3.1-7.8) Iron Level 21 ug/dL (50-170) Total Iron Binding Capacity 378 ug/dL (250-425) Percent Iron Saturation 5.6 % (15-50) Ferritin 9.9 ng/mL (10-291) C-Reactive Protein High Sensitivity 0.37 mg/dL (<1.0) Other Laboratory Tests 04/17/25 05:52 Brief Hx & Hospital Course: 44-year-old female with a diagnosis of rheumatoid arthritis one year ago, recently started on methotrexate on this admission , history of degenerative joint disease, hypertension, history of kidney stones initially presented to the hospital with a acute atraumatic left knee pain and left hip pain. Eventually patient was admitted. MRI of the left hip was done which shows bone marrow edema without any fracture. Patient is requesting to go home as she has to make an appointment with the her own card grader in [place]. Patient is requesting methotrexate as well as some [place]. I will also add some Medrol Dosepak. Patient is being discharged under stable condition. Condition at Discharge: Stable Final Diagnosis/Problems List 1. Acute flare of rheumatoid arthritis 2. Atraumatic left hip pain and left knee pain 3. Chronic marijuana use 4. Hypertension Discharge Disposition: Home SNF Discharge Will this Physician continue t: No Discharge Instruct/Medications Diet: Cardiac 2g Na,low cholest Activity: See Comment Activity comment: No driving, no signing legal documents, no playing on machinery while on narcotics. Follow Up/Referral: Please follow up with the PCP and Rheumatology in one week Medications: Medrol Dosepak, [place], methotrexate as prescribed. New Medications: Hydrocodone-Acetaminophen (Hydrocodone Bitartrate/AC 10-325 mg) 1 Tab Tab 1 TAB PO Q6HP PRN, #14 TAB Methylprednisolone (Medrol Dosepak) 4 Mg Jayy 4 MG PO UD, #21 TAB UAD Naloxone HCl (Narcan) 4 Mg/0.1 Ml Spr 4 MG NA WAREHOUSE MAN, #2 SPRAY Docusate Sodium (Docusate Sodium) 100 Mg Cap 100 MG PO BIDPRN PRN, #20 CAP Methotrexate (Methotrexate Sodium) 2.5 Mg Tab 7.5 MG PO Q7D@1200 for 30 Days, #12 TAB Continued Medications: Ibuprofen Micronized (Ibuprofen) 600 Mg Tab 600 MG PO TIDWM for 10 Days, #30 TAB 0 Refills Losartan Potassium (Losartan Potassium) 50 Mg Tab 1 TAB PO DAILY Discontinued Medications: Amoxicillin & Pot Clavulanate (Augmentin Tablet) 875 Mg Tb 875 MG PO BID for 7 Days, #14 TAB 0 Refills Scheduled Amoxicillin & Pot Clavulanate (Augmentin Tablet), 875 MG PO BID Ibuprofen Micronized (Ibuprofen), 600 MG PO TIDWM Losartan Potassium (Losartan Potassium), 1 TAB PO DAILY, (Reported) Methotrexate (Methotrexate Sodium), 7.5 MG PO Q7D@1200 Methylprednisolone (Medrol Dosepak), 4 MG PO UD Naloxone HCl (Narcan), 4 MG NA WAREHOUSE MAN Scheduled PRN Docusate Sodium (Docusate Sodium), 100 MG PO BIDPRN PRN Hydrocodone-Acetaminophen (Hydrocodone Bitartrate/AC 10-325 mg), 1 TAB PO Q6HP PRN Discharge Statement: "Patient was advised to return to the ER or call 911 if any headaches, dizziness, shortness of breath, chest pain, abdominal pain, bleeding, fevers, or worsening of medical condition. Patient was counseled about treatment plan, medications, possible side effects, patientverbalized understanding. All questions were answered to the best of my ability. This discharge took greater then 30 minutes in planning, reviewing documentation, counseling the patient, and discussing with other team members." ASSESSMENT ASSESSMENT Assessment Date of Service: Apr 17, 2025 Billing Provider: BARBI LAW MD Common Visit Codes: 40815-TZA/[id number] DISCH DAY >30min BARBI LAW MD Apr 17, 2025 16:55
[2025-04-17 17:00] VITALS: BP 123/76; PULSE 72; RESP 18; TEMP 98.9; O2SAT 99
[2025-04-19 13:07] LABS: Anti-Centromere B Antibody <0.2 AI (0.0-0.9); Anti-Jo-1 Antibody <0.2 AI (0.0-0.9); Anti-dsDNA Antibody <1 IU/mL (0-9); Antichromatin Antibody <0.2 AI (0.0-0.9); Antiscleroderma-70 Antibody <0.2 AI (0.0-0.9); Sjogren's Anti-SS-A Antibody <0.2 AI (0.0-0.9); Sjogren's Anti-SS-B Antibody <0.2 AI (0.0-0.9)
== END 2025-04-17 18:50 | disposition home or self-care (01) | DRG 346 ==
LOC: ER 08:56 → EDBD 08:56 → OVERFLOW 15:17 → WEST WING 18:09 → OVERFLOW 18:25 → WEST WING 23:52
PROVIDERS: ADMIT Student in an Organized Health Care Education/Training Program; ATTEND Emergency Medicine
DX: M06.9 Rheumatoid arthritis, unspecified (principal); M87.852 Other osteonecrosis, left femur; I10 Essential (primary) hypertension; E66.9 Obesity, unspecified; F12.90 Cannabis use, unspecified, uncomplicated; Z87.442 Personal history of urinary calculi; Z68.36 Body mass index [BMI] 36.0-36.9, adult; Z91.041 Radiographic dye allergy status
CPT/HCPCS: 36415; 72170; 73718; 80048; 80053; 82306; 82607; 82728; 82746; 83036; 83516; 83540; 83550; 83605; 84439; 84443; 84550; 84702; 85025; 85652; 86141; 86225; 86235; 86431; 96374; 96375; 96376; 97163; G0378; J1100; J1756; J2405; J2470